=== PATIENT | female | born 1955 | race African-American/Black ===

== ENCOUNTER → 2019-09-22 | Outpatient (CLI) | payer MEDICARE, MEDICAID ==
[2019-09-22 11:09] LABS: FREE T3 4.35 pg/mL (2.77-5.27); FREE T4 (FREE THYROXINE) 1.67 ng/dL (0.78-2.19)
[2019-09-22 11:28] LABS: THYROID STIMULATING HORMONE < 0.01 uIU/mL (0.47-4.68)
[2019-09-23 14:34] LABS: THYROTROPIN RECEPTOR AB 2.02 IU/L (0.00-1.75)
== END ==
LOC: OD 09:21
PROVIDERS: ATTEND Surgery
DX: E05.90 Thyrotoxicosis, unspecified without thyrotoxic crisis or storm (principal)
CPT/HCPCS: 36415; 83519; 84439; 84443; 84481; 86376; 86800

== ENCOUNTER → 2019-10-01 | Outpatient (CLI) | payer MEDICARE, MEDICAID ==
--- NOTE | 2019-10-02 16:44 | RADIOLOGY REPORT (SQ) ---
EXAM DESCRIPTION: NM THYROID SCAN AND UPTAKE COMPLETED DATE/TIME: 10/02/2019 12:10 pm REASON FOR STUDY: HYPERTHYROIDISM E05.90 THYROTOXICOSIS, UNSP WITHOUT THYROTOXIC CRISIS OR STO COMPARISON: None. RADIONUCLIDE AND DOSE: 288 microcuries [id number]. The route of agent administration: Oral ADDITIONAL DRUGS AND DOSES: None. TECHNIQUE: Iodine uptake was measured at 4 and 24 hours. Images of the neck were acquired. LIMITATIONS: None. FINDINGS: 4 HOUR UPTAKE RADIO-IODINE: 21.61%. Normal Range of 5-20% [facility] Normal Range of 5-15% [facility] Normal Range of 5-15% [facility] 24 HOUR UPTAKE RADIO-IODINE: 53.41%. Normal Range of 7-35% [facility] Normal Range of 8-35% [facility] Normal Range of 15-30% [facility] SCAN: There is greater uptake in the right lobe of the gland in the midportion of the lobe. OTHER: No other significant finding. IMPRESSION: There is greater uptake in the midportion of the right lobe of the gland. Cannot exclud e an active nodule. Increased uptake at 4 hours and at 24 hours. COMMENT: Consider thyroid ultrasound. TECHNICAL DOCUMENTATION: JOB ID: [id number] 2010 [employer]- All Rights Reserved Reading location - IP/workstation name: [email or web address]
== END ==
LOC: RAD 10:57
PROVIDERS: ATTEND Surgery
DX: E05.90 Thyrotoxicosis, unspecified without thyrotoxic crisis or storm (principal)
CPT/HCPCS: 78014; A9516